=== PATIENT | female | born 1970 | race Caucasian/White ===

== ENCOUNTER 2018-01-24 10:15 | Emergency (ER) | payer MEDICARE, OTHER | END 2018-01-24 11:04 | disposition home or self-care (01) | LOC: FTE 10:15 | DX: B35.4 Tinea corporis (principal) | CPT/HCPCS: 99283 ==

== ENCOUNTER 2018-06-11 09:20 | Emergency (ER) | payer MEDICARE, OTHER | END 2018-06-11 10:21 | disposition home or self-care (01) | LOC: FTE 09:20 | DX: J06.9 Acute upper respiratory infection, unspecified (principal) | CPT/HCPCS: 99283 ==

== ENCOUNTER 2018-10-15 09:29 | Emergency (ER) | payer MEDICARE, OTHER | END 2018-10-15 11:05 | disposition home or self-care (01) | LOC: FTE 09:29 | DX: J06.9 Acute upper respiratory infection, unspecified (principal) | CPT/HCPCS: 99282 ==